=== PATIENT | female | born 2000 | race African-American/Black ===

== ENCOUNTER 2021-09-28 20:16 | Emergency (ER) | payer OTHER ==
[~2021-09-28] VITALS: Ht 182.9 cm; Wt 81.8 kg
[2021-09-28 20:24] VITALS: TEMP 98.2
[2021-09-28 21:12] VITALS: BP 132/90; PULSE 71
[2021-09-28] MEDS ORDERED: ZOFRAN ODT4 MG PO (21:37)
== END 2021-09-28 21:12 | disposition home or self-care (01) ==
LOC: COL.ER 20:16
DX: S06.0X0A Concussion without loss of consciousness, initial encounter (principal); S40.012A Contusion of left shoulder, initial encounter; M54.2 Cervicalgia; J45.909 Unspecified asthma, uncomplicated; W51.XXXA Accidental striking against or bumped into by another person, initial encounter; Y93.67 Activity, basketball